=== PATIENT | male | born 1980 | race Caucasian/White ===

== ENCOUNTER 2018-12-07 21:53 | Emergency (ER) | payer SELFPAY ==
[~2018-12-07] VITALS: Ht 170.2 cm; Wt 97.5 kg
[~2018-12-07 21:53] MED LIST: NAPR-985 PO
[2018-12-07 21:57] VITALS: Ht 170.2 cm; Wt 97.5 kg
[2018-12-07] MEDS ORDERED: ACETAMINOPHEN 325 MG TAB PO ONE (23:00)
[2018-12-08 00:18] VITALS: BP 147/88; PULSE 100; RESP 18
--- NOTE | 2018-12-15 01:34 | ERD ---
ER Documentation Chief Complaint Chief Complaint HEAD PAIN/SWELLING S/P. +KO, NEURO INTACT. HPI Patient is a 38-year-old male presenting to the emergency department complaining of left head swelling for the past 2 days. Patient states he awoke in a puddle of blood 2 days ago after going out and drinking the night before. He states he had amnesia but he believes he has head and is unsure whether he lost consciousness. He currently reports 10/10 severity headache which is constant associated with nausea. He took no medication for relief of symptoms. He denies any other symptoms or injuries at this time. ROS All systems reviewed and are negative except as per history of present illness. Medications Home Meds Active Scripts Naproxen* (Naprosyn*) 500 Mg Tablet, 500 MG PO BID PRN for PAIN AND/OR INFLAMMATION, #30 TAB Prov:JULI ISAAC PA-C 12/07/18 Allergies Allergies: Coded Allergies: No Known Allergy (Unverified , 12/07/18) PMhx/Soc Medical and Surgical Hx: pt denies Medical Hx History of Surgery: Yes (left ankle) Hx Alcohol Use: Yes (occasionally) Hx Substance Use: No Hx Tobacco Use: No Smoking Status: Never smoker Physical Exam Physical Exam Const: No acute distress Head: Atraumatic Eyes: Normal Conjunctiva ENT: Normal External Ears, Nose and Mouth. Neck: Full range of motion. No meningismus. Resp: Clear to auscultation bilaterally Cardio: Regular rate and rhythm, no murmurs Abd: Soft, non tender, non distended. Normal bowel sounds Skin: No petechiae or rashes Back: No midline or flank tenderness Ext: No cyanosis, or edema Neur: Awake and alert Psych: Normal Mood and Affect Results 24 hrs Current Medications Medications Dose Sig/Radha Start Time Status Last (Trade) Ordered Route PRN Stop Time Admin Dose Reason Admin 650 mg ONCE ONCE 12/07/18 DC 12/07/18 Acetaminophen PO 23:00 22:58 (Tylenol 12/07/18 23:01 Tab) [address] [address] Radiology Main Line: [phone] DIAGNOSTIC IMAGING REPORT Patient: CALOS WATKINS : 1980 Age: 38 Sex: M MR #: [id number] DOS: 12/07/18 0000 Ordering MD: JULI ISAAC PA-C Location: [facility] Room/Bed: PROCEDURE: CT Brain without contrast. CLINICAL INDICATION: Pain, hematoma on head TECHNIQUE: A CT of the brain was performed from the skull base through the vertex without IV contrast. Multiplanar reformatted images were made. Images were reviewed on a PACS workstation. The CTDIvol is 36 mGy and the DLP is 713.5 mGycm. DICOM images are available. One or more of the following dose reduction techniques were utilized: 1.) Automated exposure control 2.) Adjustment of the mA +/- kV according to patient's size 3.) Use of iterative reconstruction technique. COMPARISON: None FINDINGS: Brain: No acute intracranial findings. No mass, hemorrhage, or evidence of acute infarct. The ventricles are normal in size and configuration. Bones: The skull base and calvarium are normal in appearance. Orbits: Unremarkable Soft tissues: Mild focal soft tissue swelling seen over the left frontal convexity near the vertex. Paranasal sinuses: Visualized sinuses are clear. IMPRESSION: No acute intracranial findings. Mild focal soft tissue swelling over the left frontal convexity near the vertex. RPTAT:HCLE Physician Hanna Date Time Electronically viewed and signed by Physician Hanna on 12/07/2018 23:11 cE/ CC: JULI ISAAC PA-C [id number] Procedures/MDM Patient is a 38-year-old male intracranial pathology presenting to the emergency department with complaints of headache. Differential diagnoses include meningitis, intracranial hemorrhage, subarachnoid hemorrhage, CVA, TIA, tension headache, migraine, cluster headache, and others. I doubt any life threatening etiology at this time. [CT scan of the head was unremarkable.] Patient improved in the department after treatment with Tylenol. Pt is to follow-up with primary care physician and return here immediately for any new or worsening symptoms. Patient's neurologic symptoms have stabilized while they have been evaluated in the department and are appropriate for outpatient work up. No e/o meningitis, intracranial bleed, seizure, stroke. Departure Diagnosis: Primary Impression: Scalp hematoma Condition: Fair Patient Instructions: HEAD INJURY with Wake-Up (Adult) Referrals: [facility] YOU HAVE RECEIVED A MEDICAL SCREENING EXAM AND THE RESULTS INDICATE THAT YOU DO NOT HAVE A CONDITION THAT REQUIRES URGENT TREATMENT IN THE EMERGENCY DEPARTMENT. FURTHER EVALUATION AND TREATMENT OF YOUR CONDITION CAN WAIT UNTIL YOU ARE SEEN IN YOUR DOCTORS OFFICE WITHIN THE NEXT 1-2 DAYS. IT IS YOUR RESPONSIBILITY TO MAKE AN APPOINTMENT FOR FOLOW-UP CARE. IF YOU HAVE A PRIMARY DOCTOR --you should call your primary doctor and schedule an appointment IF YOU DO NOT HAVE A PRIMARY DOCTOR YOU CAN CALL OUR PHYSICIAN REFERRAL HOTLINE AT IF YOU CAN NOT AFFORD TO SEE A PHYSICIAN YOU CAN CHOSE FROM THE FOLLOWING [facility] [address] [facility] [address] [facility] [address] [facility] [address] [facility] [address] [facility]. [facility] [address] Additional Instructions: Call your primary care doctor TOMORROW for an appointment during the next 1-2 days.See the doctor sooner or return here if your condition worsens before your appointment time. JULI ISAAC PA-C Dec 15, 2018 01:34
== END 2018-12-08 00:18 | disposition home or self-care (01) ==
LOC: FTE 21:53
DX: S00.03XA Contusion of scalp, initial encounter (principal); X58.XXXA Exposure to other specified factors, initial encounter; Y92.9 Unspecified place or not applicable
CPT/HCPCS: 36415; 70450